=== PATIENT | female | born 2000 | race African-American/Black ===

== ENCOUNTER 2020-10-19 15:13 | Emergency (ER) | payer BC, OTHER, SELFPAY ==
[2020-10-19 15:52] VITALS: BP 122/76; PULSE 70; O2SAT 100; BMI 21.4
--- NOTE | 2020-10-19 16:20 | ED_ITS ---
HPI - Allergic Reaction General Chief complaint: Allergic Reaction Stated complaint: MILD ALLERGIC REACTION Time Seen by Provider: 10/19/20 16:08 Source: patient Mode of arrival: EMS Limitations: no limitations History of Present Illness HPI narrative: Patient comes emergency room complaining of an allergic reaction to food. [facility] [place] [facility] [place] [facility], states she ate some sandwich, had some shrimp in it. To her knowledge she is not allergic to shrimp. Patient's lips started swelling, patient had difficulty breathing. She was given an injection with an EpiPen and then brought to the emergency room. Patient states that yesterday she had the same food, she had a similar reaction but not as severe as today. Patient states that yesterday her tongue was numb and tingly, but self resolved. Today she actually had shortness of breath which resolved after the EpiPen injection. At this time, patient states she feels mild tickling in her throat, denies shortness of breath/difficulty breathing. Related Data Previous Rx's Medication Instructions Recorded epinephrine 0.3 mg/0.3 mL 0.3 mg IM Q10M PRN #2 ea 10/19/20 injection, auto-injector (EpiPen) Allergies Allergy/AdvReac Type Severity Reaction Status Date / Time No Known Allergies Allergy Unverified 11/10/19 19:46 [No Known Allergies*] Review of Systems Review of Systems: Constitutional : No Weight loss, No Fever, No Chills, No Night Sweats, No Fatigue, No Malaise ENT/Mouth : No Hearing loss, No Ear Pain, No Nasal Congestion, No Sinus Pain, complaining of mild foreign body sensation in the throat, Rhinorrhea, No Swallowing Difficulty Eyes: No Eye Pain, No Swelling, No Redness, No Foreign Body, No Discharge, No Vision Changes Cardiovascular : No Chest Pain, No SOB, No Dyspnea on Exertion, No Orthopnea, No Edema, No Palpitations Respiratory : No Cough, No Sputum, No Wheezing, No Smoke Exposure, No Dyspnea Gastrointestinal : No Nausea, No Vomiting, No Diarrhea, No Constipation, No abdominal Pain, No Hematochezia, No Melena Genitourinary : no irregular bleeding, No Dysuria, No Urinary Frequency, No Hematuria, No Urinary Incontinence, No Urgency, No Flank Pain, No Urinary Flow Changes, No Hesitancy Musculoskeletal : No joint pain, No Myalgias, No Joint Swelling Skin : No Skin Lesions, No rash Neuro : No Weakness, No Numbness, No Paresthesias, No Loss of Consciousness, No Dizziness, No Headache Psych : No Anxiety/Panic, No Depression, No SI/HI/AH/VH, No Social Issues, Heme/Lymph: No Bruising, No Bleeding,No Lymphadenopathy Endocrine : No Polyuria, No Polydipsia, No Temperature Intolerance [facility] Social History Social History Alcohol intake: never Patient Tobacco Use Status: Never used Tobacco Use of substances other than those prescribed or required for medical reasons: No Advance Directives: No Advance Directives Information Provided: Yes Physical Exam Vital Signs: Vital Signs: Body Mass Index 21.4 Const: Other: Appearance: Alert. Oriented X3. No acute distress. Eyes: Pupils equal, round and reactive to light. ENT: Pharynx normal. No angioedema Neck: Normal inspection. Neck supple. No lymph nodes noted. No crepitus CVS: Normal heart rate and rhythm. Pulses normal. Normal S1 and S2 Respiratory: No respiratory distress. Breath sounds normal. No Wheezing. No rales , speaking full sentences Abdomen: Soft and nontender. No rigidity. No distention. good BS x4 Skin: Skin warm and dry. Normal skin color. Normal skin turgor. Extremities: No lower extremity edema. No Lacerations. No Rash Neuro: Oriented X 3. No motor deficit. No sensory deficit. Moving all extermities. No slurred speech. Course Course Course Narrative: Patient was given 1 dose of IV Solu-Medrol, Pepcid and Benadryl. At this time, epinephrine is not indicated. Patient already received 1 dose. Patient's physical exam is within normal limits. Patient declined IV medication, accepted to take p.o. medication. Patient states she is being discharged as soon as possible. It has been almost 3 hours since the patient received a dose of epinephrine. Patient is asymptomatic. Discharge Plan Discharge Clinical Impression: Allergic reaction Patient Disposition: Home, Self-Care Instructions: Food Allergy (ED) Additional Instructions: Please follow-up with your primary care physician tomorrow. If you have any worsening or new symptoms, please return to the emergency room or call 911 Prescriptions: New epinephrine [EpiPen] 0.3 mg/0.3 mL auto-injector 0.3 mg IM Q10M PRN (Reason: anaphylaxis) Qty: 2 RF: 0
[2020-10-19] MEDS: predniSONE 20 MG TABLET 60 MG PO (17:13)
[2020-10-19] MEDS: Famotidine 20 MG TABLET PO (17:13)
[2020-10-19] MEDS: diphenhydrAMINE HCL 25 MG TABLET PO (17:13)
== END 2020-10-19 17:35 | disposition home or self-care (01) ==
PROVIDERS: Emergency Provider Emergency Medicine
DX: T78.1XXA Other adverse food reactions, not elsewhere classified, initial encounter (principal); X58.XXXA Exposure to other specified factors, initial encounter
CPT/HCPCS: 96374; 96375; 99284; Q0163

== ENCOUNTER 2022-04-23 14:20 | Emergency (ER) | payer BC, SELFPAY ==
[2022-04-23 14:28] VITALS: BP 127/82; PULSE 68; RESP 18; TEMP 36.7; O2SAT 100; BMI 22.4
--- NOTE | 2022-04-23 14:32 | ED_ITS ---
HPI - Psych General Chief Complaint: Psychiatric Symptoms Stated Complaint: From school, psych eval requested per EMS Time Seen by Provider: 04/23/22 14:23 Source: patient and EMS Mode of arrival: EMS Limitations: no limitations History of Present Illness HPI Narrative: Patient comes to the emergency room via EMS from [facility]. Today, patient went to the health center, Samantha uriostegui ally she Related Data Home Medications Medication Instructions Recorded Confirmed esomeprazole magnesium 20 mg 1 cap PO DAILY 04/23/22 04/23/22 capsule,delayed release (Nexium 24HR) fluoxetine 20 mg capsule 1 cap PO QAM 04/23/22 04/23/22 ondansetron 4 mg disintegrating 1 tab PO NEEDED nausea 04/23/22 04/23/22 tablet Previous Rx's Medication Instructions Recorded epinephrine 0.3 mg/0.3 mL 0.3 mg (0.3 mL) IM Q10M PRN 10/19/20 injection, auto-injector (EpiPen) anaphylaxis #2 ea Allergies Allergy/AdvReac Type Severity Reaction Status Date / Time No Known Allergies Allergy Unverified 11/10/19 19:46 [No Known Allergies*] Review of Systems Review of Systems: Constitutional : No Weight loss, No Fever, No Chills, No Night Sweats, No Fatigue, No Malaise ENT/Mouth : No Hearing loss, No Ear Pain, No Nasal Congestion, No Sinus Pain, No Hoarseness, No sore throat, No Rhinorrhea, No Swallowing Difficulty Eyes: No Eye Pain, No Swelling, No Redness, No Foreign Body, No Discharge, No Vision Changes Cardiovascular : No Chest Pain, No SOB, No Dyspnea on Exertion, No Orthopnea, No Edema, No Palpitations Respiratory : No Cough, No Sputum, No Wheezing, No Smoke Exposure, No Dyspnea Gastrointestinal : No Nausea, No Vomiting, No Diarrhea, No Constipation, No abdominal Pain, No Hematochezia, No Melena Genitourinary : no irregular bleeding, No Dysuria, No Urinary Frequency, No Hematuria, No Urinary Incontinence, No Urgency, No Flank Pain, No Urinary Flow Changes, No Hesitancy Musculoskeletal : No joint pain, No Myalgias, No Joint Swelling Skin : No Skin Lesions, No rash Neuro : No Weakness, No Numbness, No Paresthesias, No Loss of Consciousness, No Dizziness, No Headache Psych : Complaining of depression, no SI or HI, denies drug or alcohol use Heme/Lymph: No Bruising, No Bleeding,No Lymphadenopathy Endocrine : No Polyuria, No Polydipsia, No Temperature Intolerance [facility] Past Medical History Medical History (Updated 04/23/22 @ 14:41 by Tiffany Juarez MD) Depression IBS (irritable bowel syndrome) Social History Social History Alcohol intake: never Patient Tobacco Use Status: Never used Tobacco Smoked in Last 30 Days: No Use of substances other than those prescribed or required for medical reasons: No Advance Directives: No Advance Directives Information Provided: No Physical Exam Vital Signs: Vital Signs: Last Vital Signs Temp 98.0 F 04/23/22 14:28 Pulse 68 04/23/22 14:28 Resp 18 04/23/22 14:28 BP 127/82 04/23/22 14:28 Pulse Ox 100 04/23/22 14:28 O2 Del Method 04/23/22 14:28 BMI result Body Mass Index 22.4 Const: Other: Appearance: Alert. Oriented X3. No acute distress. Eyes: Pupils equal, round and reactive to light. ENT: Pharynx normal. Neck: Normal inspection. Neck supple. No lymph nodes noted. No crepitus CVS: Normal heart rate and rhythm. Pulses normal. Normal S1 and S2 Respiratory: No respiratory distress. Breath sounds normal. No Wheezing. No rales Abdomen: Soft and nontender. No rigidity. No distention. Skin: Skin warm and dry. Normal skin color. Normal skin turgor. Extremities: No lower extremity edema. No Lacerations. No Rash Neuro: Oriented X 3. No motor deficit. No sensory deficit. Moving all extremities. No slurred speech. CN 2 through 12 grossly intact Psych: calm, cooperative, seems depressed Course Course Course Narrative: -all of patient's labs are pending -CARE Consult pending -physician observation started at 14:40 Medical Decision Making Medical Decision Making [facility] Narrative: -patient is not suicidal or homicidal -the care team evaluated the patient, patient can be discharged. -the kidney will provide transportation for the patient to go back to her school -patient is a difficult stick and she refused blood work for attempting several times. Differential Diagnosis Differential Diagnoses: The differential diagnosis associated with the presentation includes (Anxiety, depression) Lab Data [facility] Lab Attestation statement: I reviewed the patient's lab results. 04/23/22 14:54 04/23/22 14:54 Labs: Lab Results 04/23/22 04/23/22 04/23/22 Range/Units 14:38 16:28 16:28 Urine Color Yellow Urine Appearance Clear Urine pH 5.5 (5.0-9.0) Ur Specific [place] 1.015 (1.005-1.025) Urine Protein Negative (Neg-Trace) mg/dL Urine Glucose (UA) Negative (Negative) mg/dL Urine Ketones Trace (Negative) mg/dL Urine Blood Negative (Negative) Urine Nitrite Negative (Negative) Ur Leukocyte Esterase Negative (Negative) Urine Test NEGATIVE (NEGATIVE) Urine Opiates Screen (Not Detect) Urine Fentanyl Screen (Not Detect) Ur Barbiturates Screen (Not Detect) Ur Phencyclidine Scrn (Not Detect) Ur Amphetamines Screen (Not Detect) U Benzodiazepines Scrn (Not Detect) Urine Cocaine Screen (Not Detect) U Marijuana (THC) Screen (Not Detect) COVID-19 (DAVE) Negative (Negative) COVID-19 Clin Com See Note 04/23/22 Range/Units 16:28 Urine Color Urine Appearance Urine pH (5.0-9.0) Ur Specific [place] (1.005-1.025) Urine Protein (Neg-Trace) mg/dL Urine Glucose (UA) (Negative) mg/dL Urine Ketones (Negative) mg/dL Urine Blood (Negative) Urine Nitrite (Negative) Ur Leukocyte Esterase (Negative) Urine Test (NEGATIVE) Urine Opiates Screen Not Detected (Not Detect) Urine Fentanyl Screen Not Detected (Not Detect) Ur Barbiturates Screen Not Detected (Not Detect) Ur Phencyclidine Scrn Not Detected (Not Detect) Ur Amphetamines Screen Not Detected (Not Detect) U Benzodiazepines Scrn Not Detected (Not Detect) Urine Cocaine Screen Not Detected (Not Detect) U Marijuana (THC) Screen POSITIVE H (Not Detect) COVID-19 (DAVE) (Negative) COVID-19 Clin Com Discharge Plan Discharge Clinical Impression: Depression Patient Disposition: Home, Self-Care Instructions: Depression (ED) Additional Instructions: Please follow-up with your primary care physician tomorrow. If you have any worsening or new symptoms, please return to the emergency room or call 911 Prescriptions: No Action epinephrine [EpiPen] 0.3 mg/0.3 mL auto-injector 0.3 mg IM Q10M PRN (Reason: anaphylaxis) Qty: 2 0RF Rx Instructions: for 2 doses ondansetron 4 mg tablet,disintegrating 1 tab PO NEEDED fluoxetine 20 mg capsule 1 cap PO QAM esomeprazole magnesium [Nexium 24HR] 20 mg capsule,delayed release(DR/EC) 1 cap PO DAILY Interventions: Forrest-Suicide Risk Severity Scale Last Done: 04/23/22 15:31
[2022-04-23 15:14] LABS: COVID-19 Test Negative (Negative); IDNOW Serial# 6674DD1D
[2022-04-23 16:58] LABS: Appearance Urine Clear; Color Urine Yellow; Glucose Urine UA Negative (Negative); Leukocyte Esterase Urine Negative (Negative); Nitrite Urine Negative (Negative); PH 5.5 (5.0-9.0); Specific Gravity - Urine 1.015 (1.005-1.025); UPreg QC Valid YES; Urine Blood Negative (Negative); Urine Ketones Trace mg/dL (Negative); Urine Pregnancy NEGATIVE (NEGATIVE); Urine Protein Negative (Neg-Trace)
[2022-04-23 17:06] LABS: Amphetamine Screen Urine Not Detected (Not Detect); Barbiturates, Urine Not Detected (Not Detect); Benzodiazepines Screen Urine Not Detected (Not Detect); Cannabinoid Screen Urine POSITIVE (Not Detect); Cocaine Screen Urine Not Detected (Not Detect); Fentanyl, urine Not Detected (Not Detect); Opiate Screen Urine Not Detected (Not Detect); Phencyclidine Screen Urine Not Detected (Not Detect)
--- NOTE | 2022-04-23 19:00 | MHC.EDTECH ---
t/w performed fingerstick on pt. second attempt at fingerstick. lab called for recollect. pt refused another recollect. ivan brown
[2022-04-24 00:08] VITALS: BP 113/60; PULSE 56; RESP 15; TEMP 36.8; O2SAT 96
--- NOTE | 2022-04-24 05:30 | PC.NURSE ---
Patient slept through the night, no distress observed/reported, behavior appropriate and non concerning, denied SI/HI/AVH, patient is cleared by care team, disposition current provider, care team will coordinate ride in the morning to [facility], will continue to monitor.
[2022-04-24 08:36] VITALS: BP 113/64; PULSE 89; RESP 16; TEMP 36.6; O2SAT 98
== END 2022-04-24 09:12 | disposition home or self-care (01) ==
PROVIDERS: Emergency Provider Emergency Medicine
DX: F32.A Depression, unspecified (principal); F12.90 Cannabis use, unspecified, uncomplicated; Z20.822 Contact with and (suspected) exposure to COVID-19; Z79.899 Other long term (current) drug therapy
CPT/HCPCS: 80048; 80076; 80307; 81003; 81025; 82077; 85025; 87635; 99285; S9485